=== PATIENT | male | born 1975 | race Caucasian/White ===

== ENCOUNTER 2019-06-20 11:31 | Observation (INO) | payer OTHER ==
[~2019-06-20] VITALS: Ht 179.1 cm; Wt 77.5 kg
[2019-06-20] VITALS (21 sets, daily range): BP systolic 106–135; BP diastolic 64–85; PULSE 56–68; RESP 12–25; Ht 179.1 cm; Wt 77.5 kg
[~2019-06-20 11:31] MED LIST: CEFAZOLIN 1 GM/50 ML (PMX) 50 ML IVPB ONE; SOD CHLORIDE 0.9% 1,000 ML IV SCH
--- NOTE | 2019-06-20 14:20 | PREAC ---
Date/Time of Note Date/Time of Note DATE: 06/20/19 TIME: 14:18 Anesthesia Eval and Record Evaluation Time Pre-Procedure Interview DATE: 06/20/19 TIME: 14:18 Age 43 Sex male NPO: 8 hrs Preoperative diagnosis thyroid ca Planned procedure left thyroid lobectomy Past Medical History Past Medical History: None Surgery & Anesthesia Issues No known issue Meds Anticoagulation: No Beta [place] within 24 hr: No Reason Beta Ch[place] not given: Pt. not on B-Ch[place] Current Medications Sodium Chloride 1,000 ml @ 75 mls/hr [id number] IV ; Start 06/20/19 at 07:00 Meds reviewed: Yes Allergies Coded Allergies: ciprofloxacin (Verified Allergy, Unknown, 06/19/19) Allergies Reviewed: Yes Labs/Studies Labs Reviewed: Reviewed by anesthesiologist test: N/A Pre-procedure Exam Airway: Adequate mouth opening, Adequate thyromental dist Mallampati: Mallampati II Teeth: Normal Lung: Normal Heart: Normal ASA Physical Status ASA physical status: 2 Emergency: None Planned Anesthetic General/MAC: ETT Planned Pain Management Parenteral pain med Pre-operative Attestations Prior to commencing anesthesia and surgery, the patient was re-evaluated, there was verification of: *The patient's identity *The results of appropriate recent lab work and preoperative vital signs *The above evaluation not changing prior to induction *Anesthetic plan, risk benefits, alternative and complications discussed with patient/family; questions answered; patient/family understands, accepts and wishes to proceed. RHONDA HERNANDEZ Jun 20, 2019 14:20
[2019-06-20] MEDS ORDERED: LIDOCAINE 2% (SDV) 5 ML INJ ONE (14:29)
[2019-06-20] MEDS ORDERED: PROPOFOL 100 ML ONE (14:29)
[2019-06-20] MEDS ORDERED: SUCCINYLCHOLINE CHLORIDE 100 MG/5 ML SYG IV ONE (14:30)
[2019-06-20] MEDS ORDERED: CEFAZOLIN 1 GM INJ ONE (15:03)
[2019-06-20] MEDS ORDERED: morphine 10 MG INJ ONE (15:15)
[2019-06-20] MEDS ORDERED: FENTAnyl 50 MCG/ML VIAL IV PRN ×3 (17:00)
[2019-06-20] MEDS ORDERED: ALBUTEROL 0.083% (NEB) 2.5 MG/3 ML AMP HHN PRN (17:00)
[2019-06-20] MEDS ORDERED: MEPERIDINE 25 MG INJ IV PRN (17:00)
[2019-06-20] MEDS ORDERED: DIPHENHYDRAMINE 50 MG INJ IV PRN (17:00)
[2019-06-20] MEDS ORDERED: EPHEDrine 25 MG/5 ML SYG IV PRN (17:00)
[2019-06-20] MEDS ORDERED: hydrALAzine 20 MG INJ IV PRN (17:00)
[2019-06-20] MEDS ORDERED: OXYCODONE/ACETAMINOPHEN (5/325) TAB PO PRN ×2 (17:00)
[2019-06-20] MEDS ORDERED: HYDROmorphONE 1 MG/5 ML IV SYRINGE IV PRN ×3 (17:00)
[2019-06-20] MEDS ORDERED: LABETALOL HCL 20MG INJ IV PRN (17:00)
[2019-06-20] MEDS ORDERED: ONDANSETRON 4 MG INJ IV PRN (17:00)
[2019-06-20] MEDS ORDERED: KETOROLAC 30 MG INJ IV PRN (17:00)
--- NOTE | 2019-06-20 17:02 | PAC ---
Date/Time of Note Date/Time of Note DATE: 06/20/19 TIME: 17:02 Post-Anesthesia Notes Post-Anesthesia Note Last documented vital signs Vital Signs Date Temp Pulse Resp B/P (MAP) Pulse Ox O2 O2 Flow FiO2 Time Delivery Rate 06/20/19 98.2 62 16 106/68 99 Room Air 1702 (81) Activity: WNL Respiratory function: WNL Cardiovascular function: WNL Mental status: Baseline Pain reasonably controlled: Yes Hydration appropriate: Yes Nausea/Vomiting absent: Yes RHONDA HERNANDEZ Jun 20, 2019 17:02
[2019-06-20] MEDS ORDERED: HYDROCODONE/APAP (5/325) TAB PO PRN (18:00)
[2019-06-20] MEDS ORDERED: morphine 2 MG INJ IV PRN ×2 (18:00→18:30)
[2019-06-20] MEDS ORDERED: CEPASTAT LOZENGE MT PRN (20:00)
[2019-06-20] MEDS: ACETAMINOPHEN 325 MG TAB PO PRN (20:10)
[2019-06-20] MEDS: D5W-0.45 NACL + KCL 20 MEQ 1,000 ML IV SCH (20:11)
--- NOTE | 2019-06-20 21:02 | OPR ---
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 PROCEDURE: Left thyroid lobectomy. ANESTHESIA: General. ANESTHESIOLOGIST: Dr. Witt. SURGEON: Randall Fields MD. EMBEDDED SOFTWARE MANAGER: Avtar Perla MD. INDICATIONS FOR PROCEDURE: The patient is a 43-year-old male, who presented with a nodule in his lef t thyroid lobe. Workup including biopsy revealed papillary cancer tumor measured approximately 1.5 t o 2 cm on ultrasound and did not appear to show extracapsular invasion. Radiographic workup did not reveal evidence of regional lymphadenopathy. Therefore, the patient was counseled as to the possibil ity of undergoing only left thyroid lobectomy. He elected to pursue this course. He consented and w as scheduled for surgery. DESCRIPTION OF PROCEDURE: The patient was brought to the operating theater, placed under general end otracheal tube anesthesia. The neck was placed in the extended position and it was then prepped and draped in usual sterile fashion. Planned surgical incision was demarcated with marking pen approxima tely 2 cm above the clavicles bilaterally and extending from the midline to a point approximately 5 c m on either side. The incision was then carried out with 15 blade scalpel. Subcutaneous tissue was dissected with cautery. The subcutaneous tissue and the platysma muscle was then transected bilatera lly. Subplatysmal flaps were then created using cautery, first superiorly to the level of the hyoid bone, then inferiorly to the level of the clavicles and sternal notch. The median raphe was incised longitudinally. This allowed visualization of the underlying thyroid gland and strap muscles. The l eft strap muscles were meticulously dissected off of the thyroid capsule. The thyroid gland was then mobilized towards midline. With meticulous dissection, the inferior pole was sequentially isolated and transected using the LigaSure device. The inferior parathyroid gland was identified and kept out of harm's way. The recurrent laryngeal nerve was identified throughout its entire course and kept o ut of harm's way, which was confirmed with nerve monitoring. The superior pole was then mobilized in similar fashion and sequentially isolated and transected with the LigaSure device. Mobilization of the thyroid gland continued towards midline until the only remaining attachments were the ligament of Stanley associated with the thyroid isthmus. These attachments were transected with combination of ca utery and the LigaSure device. Specimen was removed, oriented and underwent gross analysis of margin s performed by attending pathologist, Dr. Belkis Beltran. Margins were grossly clear and there was no evidence of extracapsular extension. Specimen was then sent for permanent pathologic analysis. The wound was irrigated. Minimal bleeding was controlled with cautery. The median raphe was then reappr oximated with 4-0 Vicryl sutures in interrupted fashion. Subsequently, the platysma muscles were als o reapproximated bilaterally, also with 4-0 Vicryl sutures in interrupted fashion, and final skin mirtha roximation took place with 5-0 PDS sutures in subcuticular fashion, and benzoin and Steri-Strips were applied. The patient tolerated the procedure well. The total blood loss was approximately 20 mL. There were no complications and the patient was transported in stable condition to the recovery room. Dictated By: RANDALL SORIA/LUIS Conf#: [id number] DID#: [id number]
[2019-06-21 02:08] VITALS: BP 110/57; PULSE 75; RESP 18
[2019-06-21] MEDS: ACETAMINOPHEN 325 MG TAB PO PRN ×2 (03:08→08:58)
[2019-06-21] MEDS: D5W-0.45 NACL + KCL 20 MEQ 1,000 ML IV SCH ×2 (05:50→09:41)
[2019-06-21 07:17] VITALS: BP 152/82; PULSE 78; RESP 18
[2019-06-21 07:43] VITALS: BP 104/57; PULSE 69; RESP 19
--- NOTE | 2019-06-21 11:56 | PDOCDIS ---
Discharge Instructions DIAGNOSIS Discharge Diagnosis Left thyroid lobectomy for cancer of left thyroid lobe CONDITION [id number] Patient Condition: [id number] Stable HOME CARE INSTRUCTIONS: [id number] Diet Instructions: Oxykj3g Regular ACTIVITY: [id number] Activity Restrictions: Oaglu8k No Restrictions Xclkp1Gt Bathing Restrictions: Dwixf3s Sponge Bath Lqrrp1Ej Activity Restrictions Pdkgh1n after 5 days may take shower Comment: FOLLOW UP/APPOINTMENTS Follow-up Plan call dr Fields office for appointment REFERRALS Other Referrals See P.C.P in 2 weeks SCHOOL/WORK RELEASE May return to School/Work on: Jun 24, 2019 May return to School/Work with: No Restrictions CHALINO ABRAHAM MD Jun 21, 2019 11:56
--- NOTE | 2019-06-21 13:23 | PN ---
DATE: 06/21/2019 Postop day #1 status post left thyroid lobectomy for cancer of the left side. SUBJECTIVE: No compla int. OBJECTIVE: GENERAL: Alert, awake, oriented. VITAL SIGNS: Stable. Temperature 97.9, heart rate 69, blood pressure 104/57, saturation 97%. LABORATORY DATA: Calcium level was done today, which is 9.2, which is normal. The patient has had b reakfast. Swallowing is good. His voice is good. No complaint. Dressing was changed. Wound is cl zainab, no cellulitis, no drainage, new sterile dressing was applied. PLAN: The patient can be discharged home today, to be followed by Dr. Schaeffer. Patient has called and already made an appointment. Dictated By: CHALINO ABRAHAM MD PS/NTS Conf#: [id number] DID#: [id number] CC: NACHO SCHAEFFER MD;*EndCC*
== END 2019-06-21 13:25 | disposition home or self-care (01) ==
LOC: SDS 11:31 → REC 17:28 → INTOOBSV 17:28 → SDS 17:28 → 2NE 18:40
PROVIDERS: ADMIT Surgery Surgical Oncology; ATTEND Surgery Surgical Oncology
DX: C73 Malignant neoplasm of thyroid gland (principal)
CPT/HCPCS: 60210; 82310; 88307; J0690; J2270; J3010; J3480; J7030; Z7500; Z7512; Z7610; G0378